=== PATIENT | female | born 1950 | race Hispanic/Latino ===

== ENCOUNTER 2017-12-16 14:10 | Emergency (ER) | payer MEDICARE ==
[~2017-12-16] VITALS: Ht 144.8 cm; Wt 67.6 kg
[~2017-12-16 14:10] MED LIST: AMLODIPINE BESY10 MG PO; LISINOPRIL10 MG PO; NEXIUM40 MG PO
[2017-12-16] MEDS ORDERED: HYDROCODONE/APAP 7.5MG-325MG 1 EA TAB PO ONE (15:30)
--- NOTE | 2017-12-16 15:52 | Diagnostic Imaging Report ---
Exams: Head and cervical spine CTs without IV contrast History: Trauma, fall, pain Comparison studies: None Technique: Axial images were obtained from the brain and cervical spine. Coronal and sagittal images reconstructed from the axial data. Intravenous contrast: None Findings: Head CT: Scalp: No abnormalities. Bones: No fractures, destructive blastic or lytic lesions. Extra-axial spaces: No masses. No fluid collections. Brain sulci: Appropriate for age. Ventricles: Normal in size and configuration. No hydrocephalus. Parenchyma: No abnormal densities. No masses, hemorrhage, acute or chronic vascular insults. Sellar/suprasellar region: No abnormalities. Craniocervical junction: The foramen magnum is patent. No Chiari one malformation. Cervical spine CT: Fractures: None. Soft tissues: No gross abnormalities. Atlantoaxial articulation: Intact. Alignment: Strain cervical curvature may be positional. Approximately 2 mm anterolisthesis of C4 on C5 may be degenerative in etiology. No additional subluxations. Cervicomedullary junction: No abnormalities. The foramen magnum is patent. Vertebrae: No infection or neoplasm. Degenerative changes: Mildly degenerated disks from C2 to C7. Disc osteophyte complexes and thickened calcified ligament flava at C5-C6 and at C6-C7 indent the thecal sac but do not result in significant canal stenosis. Multilevel facet arthrosis, worse/severe on the left at C4-C5. Moderate left foraminal stenosis at C4-C5 and mild right foraminal stenosis at C5-C6 due to uncovertebral and facet arthrosis. 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 Calcified atherosclerosis in the cervical carotid bulbs, in the carotid siphons and in the left intradural vertebral artery. IMPRESSION: Head CT: No acute abnormalities. Cervical spine CT: 1. No cervical spine fracture or acute subluxation. 2. Multilevel degenerative changes as described. 3. Cannot adequately evaluate for ligament, spinal cord and or vascular abnormalities on the basis of this examination. Signed by: Dr. Estevan Fair M.D. on 12/16/2017 3:49 PM
--- NOTE | 2017-12-16 16:01 | Diagnostic Imaging Report ---
EXAMINATION: Chest, RIBS UNILAT W/CXR INDICATION: Chest pain COMPARISON: None FINDINGS: LINES: None. Heart: Normal cardiac silhouette. Vascular: The pulmonary vasculature is within normal limits. Atherosclerotic calcifications of the aortic arch. Mediastinum: No mediastinal, hilar, or axillary mass or lymphadenopathy. Lungs: No parenchymal mass. No focal consolidation. Pleura: No pleural effusion. No pneumothorax. Bones: No acute osseous abnormality. Degenerative changes of the thoracic spine. Soft tissues: Normal. Impression: No acute radiographic abnormality. Signed by: Dr. Taiwo Wells M.D. on 12/16/2017 3:57 PM
--- NOTE | 2017-12-17 07:35 | Diagnostic Imaging Report ---
Exams: Head and cervical spine CTs without IV contrast History: Trauma, fall, pain Comparison studies: None Technique: Axial images were obtained from the brain and cervical spine. Coronal and sagittal images reconstructed from the axial data. Intravenous contrast: None Findings: Head CT: Scalp: No abnormalities. Bones: No fractures, destructive blastic or lytic lesions. Extra-axial spaces: No masses. No fluid collections. Brain sulci: Appropriate for age. Ventricles: Normal in size and configuration. No hydrocephalus. Parenchyma: No abnormal densities. No masses, hemorrhage, acute or chronic vascular insults. Sellar/suprasellar region: No abnormalities. Craniocervical junction: The foramen magnum is patent. No Chiari one malformation. Cervical spine CT: Fractures: None. Soft tissues: No gross abnormalities. Atlantoaxial articulation: Intact. Alignment: Strain cervical curvature may be positional. Approximately 2 mm anterolisthesis of C4 on C5 may be degenerative in etiology. No additional subluxations. Cervicomedullary junction: No abnormalities. The foramen magnum is patent. Vertebrae: No infection or neoplasm. Degenerative changes: Mildly degenerated disks from C2 to C7. Disc osteophyte complexes and thickened calcified ligament flava at C5-C6 and at C6-C7 indent the thecal sac but do not result in significant canal stenosis. Multilevel facet arthrosis, worse/severe on the left at C4-C5. Moderate left foraminal stenosis at C4-C5 and mild right foraminal stenosis at C5-C6 due to uncovertebral and facet arthrosis. 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 Calcified atherosclerosis in the cervical carotid bulbs, in the carotid siphons and in the left intradural vertebral artery. IMPRESSION: Head CT: No acute abnormalities. Cervical spine CT: 1. No cervical spine fracture or acute subluxation. 2. Multilevel degenerative changes as described. 3. Cannot adequately evaluate for ligament, spinal cord and or vascular abnormalities on the basis of this examination. Original report signed by Dr. Estevan Fair M.D. on 12/16/2017 at 3:49 PM Report was linked to this accession and subsequently signed as below. Signed by: Dr. Estevan Fair M.D. on 12/17/2017 7:32 AM
== END 2017-12-16 19:28 | disposition home or self-care (01) ==
LOC: ER 14:10
DX: S06.0X0A Concussion without loss of consciousness, initial encounter (principal); M54.2 Cervicalgia; W18.30XA Fall on same level, unspecified, initial encounter; Y92.008 Other place in unspecified non-institutional (private) residence as the place of occurrence of the external cause
CPT/HCPCS: 70450; 71101; 72125; 99283

== ENCOUNTER 2022-04-27 00:57 | Emergency (ER) | payer MEDICARE ==
[~2022-04-27] VITALS: Ht 144.8 cm; Wt 67.6 kg
[2022-04-27] MEDS ORDERED: PREDNISONE 20 MG TAB PO STA (01:03)
[2022-04-27] MEDS ORDERED: ALBUTEROL/IPRATROPIUM 3 ML NEB NEB STA (01:03)
[2022-04-27] MEDS ORDERED: MUCINEX DM ER1 EACH PO (03:09)
[2022-04-27] MEDS ORDERED: VENTOLIN HFA18 GM INH (03:09)
[2022-04-27] MEDS ORDERED: PREDNISONE20 MG PO (03:09)
== END 2022-04-27 03:20 | disposition home or self-care (01) ==
LOC: ER 01:03
DX: R05.9 Cough, unspecified (principal); J40 Bronchitis, not specified as acute or chronic; Z20.822 Contact with and (suspected) exposure to COVID-19; R94.31 Abnormal electrocardiogram [ECG] [EKG]
CPT/HCPCS: 71045; 93005; 94640; 94799; 99283; J7512; U0002

== ENCOUNTER → 2023-10-30 | Outpatient (REF) | payer MEDICARE ==
[~2023-10-30] MED LIST changes: +MUCINEX DM ER1 EACH PO; +PREDNISONE20 MG PO; +PROTONIX20 MG PO; +VENTOLIN HFA18 GM INH
== END ==
LOC: US 11:45
PROVIDERS: ATTEND Urology
DX: R31.21 Asymptomatic microscopic hematuria (principal)
CPT/HCPCS: 74018; 76770

== ENCOUNTER → 2024-10-03 | Day surgery (SDC) | payer MEDICARE ==
[2024-09-26 15:38] LABS: BASOPHILS % 0.5 % (0.0-1.0); EOSINOPHILS # (AUTO) 0.2 (0.0-0.4); EOSINOPHILS % 2.1 % (0.0-6.0); HEMATOCRIT 46.7 % (34.2-44.1); HEMOGLOBIN 14.1 g/dL (12.0-16.0); LYMPHOCYTES # (AUTO) 2.2 (1.0-3.2); LYMPHOCYTES % 28.4 % (18.0-39.1); MEAN CORPUSCULAR HEMOGLOBIN 27.4 pg (28-32); MEAN CORPUSCULAR HGB CONC 30.2 g/dL (31-35); MEAN CORPUSCULAR VOLUME 90.7 fL (81-99); MONOCYTES # (AUTO) 0.5 (0.2-0.8); MONOCYTES % 6.2 % (4.4-11.3); NEUTROPHILS # (AUTO) 4.8 (2.1-6.9); NEUTROPHILS % 62.5 % (38.7-80.0); RED BLOOD COUNT 5.15 x10e6/uL (3.6-5.1); RED CELL DISTRIBUTION WIDTH 13.8 % (11.7-14.4)
[2024-09-26 15:39] LABS: PLATELET COUNT 63 x10e3/uL (140-360)
[2024-09-26 15:58] LABS: ANION GAP 15.9 mmol/L (8-16); CALCIUM 9.5 mg/dL (8.4-10.2); CREATININE, SERUM 0.78 mg/dL (0.57-1.11); POTASSIUM 3.9 mmol/L (3.5-5.1)
[~2024-10-03] MED LIST changes: +AZITHROMYCIN250 MG PO; +BALANCED SALT SOLN (OPTH) 15 ML BTL IO ONE; +BUPIVACAINE HC 0.75% PF 10ML VIAL INJ ONE; +EPINEPHRINE HCL 1:1000 1ML 1 MG/ML AMP ONE; +LIDOCAINE 2% /EPINEPHRINE 20 ML SDV INJ ONE; +LIDOCAINE HCL 2% LOCAL INJ 5 ML SDV VIAL INJ ONE; +LIDOCAINE HCL-PF 4% 40 MG/1 ML 5ML AMP ONE; +MEDROL4 M2 PO; +POVIDONE IODINE 5% (OPTH) 30 ML BTL ONE; +PROPOFOL IV EMULSION 10 MG/ML 20 ML VIAL ONE
[2024-10-03] MEDS: LACTATED RINGER'S 1,000 ML ONE (07:56)
[2024-10-03] MEDS: GATIFLOXACIN(OPTH) 5 ML LIQD ONE (07:56)
[2024-10-03] MEDS: CYCLOPENTOLATE HCL 2% OPTH SOLN 2 ML BTL OP ONE (07:56)
[2024-10-03] MEDS: PHENYLEPHRINE HCL 2 ML DROPS ONE (07:56)
[2024-10-03 10:32] VITALS: TEMP 97.6
[2024-10-03 11:00] VITALS: BP 112/66; PULSE 66; RESP 16; O2SAT 100
== END | disposition home or self-care (01) ==
LOC: OR 06:05
PROVIDERS: ATTEND Ophthalmology
DX: H25.11 Age-related nuclear cataract, right eye (principal); I10 Essential (primary) hypertension; Z01.812 Encounter for preprocedural laboratory examination; Z79.899 Other long term (current) drug therapy
CPT/HCPCS: 36415; 66984; 80048; 85025; 93005; J0171; J2003; J2004; J2704; J7121; V2632

== ENCOUNTER 2025-07-14 09:20 | Inpatient (IN) | payer MEDICARE ==
[~2025-07-14] VITALS: Ht 144.8 cm; Wt 70.8 kg
[~2025-07-14 09:20] MED LIST changes: -BALANCED SALT SOLN (OPTH) 15 ML BTL IO ONE; -BUPIVACAINE HC 0.75% PF 10ML VIAL INJ ONE; -EPINEPHRINE HCL 1:1000 1ML 1 MG/ML AMP ONE; -LIDOCAINE 2% /EPINEPHRINE 20 ML SDV INJ ONE; -LIDOCAINE HCL 2% LOCAL INJ 5 ML SDV VIAL INJ ONE; -LIDOCAINE HCL-PF 4% 40 MG/1 ML 5ML AMP ONE; -POVIDONE IODINE 5% (OPTH) 30 ML BTL ONE; -PROPOFOL IV EMULSION 10 MG/ML 20 ML VIAL ONE
[2025-07-14 10:08] LABS: BASOPHILS % 0.5 % (0.0-1.0); EOSINOPHILS % 1.7 % (0.0-6.0); LYMPHOCYTES % 29.5 % (18.0-39.1); MONOCYTES % 7.2 % (4.4-11.3); NEUTROPHILS % 60.8 % (38.7-80.0); RED CELL DISTRIBUTION WIDTH 13.8 % (11.7-14.4)
[2025-07-14] MEDS: ACETAMINOPHEN 325 MG TAB PO ONE (10:21)
[2025-07-14] MEDS: SODIUM CHLORIDE 0.9% 1000ML 1,000 ML IV STA (10:21)
[2025-07-14 10:28] LABS: INR 0.95
[2025-07-14 10:40] LABS: EST GLOMERULAR FILTRATION RATE 94.0 ML/MIN (>=60)
[2025-07-14] MEDS ORDERED: Morphine 2mg Syringe 2 MG/ML SYR IV PRN (11:15)
[2025-07-14] MEDS ORDERED: ONDANSETRON HCL INJ 2MG/ML 2ML 2 MG/ML VIAL IV PRN (11:15)
[2025-07-14] MEDS ORDERED: NITROGLYCERIN 0.4 MG SUBL SL PRN (11:15)
[2025-07-14] MEDS ORDERED: ACETAMINOPHEN 325 MG TAB PO PRN (11:15)
[2025-07-14] MEDS: ASPIRIN 81 MG CHEW TAB PO ONE (11:54)
[2025-07-14 14:23] VITALS: PULSE 65; RESP 16; TEMP 97.6
[2025-07-14 16:15] VITALS: BP 119/62; PULSE 86; RESP 18; TEMP 98; O2SAT 100
[2025-07-14 16:23] VITALS: BP 119/62; PULSE 86; RESP 18; TEMP 98; O2SAT 100
[2025-07-14] MEDS ORDERED: PANTOPRAZOLE SODIUM 20 MG TABLET.DR PO SCH (17:00)
[2025-07-15] MEDS ORDERED: ASPIRIN 81 MG ENTERIC COATED PO SCH (09:00)
== END 2025-07-14 17:33 | disposition home or self-care (01) | DRG 313 ==
LOC: ER 09:29 → ERHOLD 11:11 → MED/SURG3 15:36
PROVIDERS: ADMIT Internal Medicine; ATTEND Internal Medicine
DX: R07.89 Other chest pain (principal); I10 Essential (primary) hypertension; K21.9 Gastro-esophageal reflux disease without esophagitis; K29.70 Gastritis, unspecified, without bleeding; E78.5 Hyperlipidemia, unspecified; R51.9 Headache, unspecified; M81.0 Age-related osteoporosis without current pathological fracture; Z88.1 Allergy status to other antibiotic agents; Z88.2 Allergy status to sulfonamides; Z91.048 Other nonmedicinal substance allergy status
CPT/HCPCS: 36415; 70450; 71045; 80053; 82550; 83735; 84484; 85025; 85610; 85730; 93005; 99284; J7030